=== PATIENT | female | born 1995 | race African-American/Black ===

== ENCOUNTER 2021-08-24 02:58 | Emergency (ER) | payer OTHER ==
[~2021-08-24] VITALS: Ht 165.1 cm; Wt 65.8 kg
--- NOTE | 2021-08-24 03:07 | NUR ---
pt in room 4a hit her nose on her car door one week ago.
[2021-08-24 03:55] LABS: HEMATOCRIT 37.5 % (31.2-41.9); MEAN CORPUSCULAR HEMOGLOBIN 30.3 uug (24.7-32.8); MEAN CORPUSCULAR VOLUME 89.4 fL (75.5-95.3); PLATELET COUNT (AUTO) 273 K/uL (179-408)
[2021-08-24 04:15] LABS: POTASSIUM 3.7 mmol/L (3.5-5.1)
[2021-08-24 04:40] VITALS: BP 130/70
--- NOTE | 2021-08-24 04:40 | NUR ---
Patient discharged to home in stable condition. Written and verbal after care instructions given. Patient verbalizes understanding of instructions. Stressed follow up or return to ER for worsening s/s.
== END 2021-08-24 04:40 | disposition home or self-care (01) ==
LOC: ER 03:13
DX: S00.33XA Contusion of nose, initial encounter (principal); W22.8XXA Striking against or struck by other objects, initial encounter; Y92.89 Other specified places as the place of occurrence of the external cause; R03.0 Elevated blood-pressure reading, without diagnosis of hypertension; F14.90 Cocaine use, unspecified, uncomplicated
CPT/HCPCS: 36415; 70160; 85025; A4663

== ENCOUNTER 2022-05-06 01:15 | Emergency (ER) | payer OTHER ==
[~2022-05-06] VITALS: Ht 165.1 cm; Wt 65.8 kg
--- NOTE | 2022-05-06 01:36 | NUR ---
DR Da Silva at bedside MSE in progress
[2022-05-06 02:00] LABS: HEMATOCRIT 39.9 % (31.2-41.9); MEAN CORPUSCULAR HEMOGLOBIN 29.5 uug (24.7-32.8); MEAN CORPUSCULAR VOLUME 90.2 fL (75.5-95.3); PLATELET COUNT (AUTO) 279 K/uL (179-408)
[2022-05-06 02:11] LABS: CREATININE 0.9 mg/dL (0.6-1.3); POTASSIUM 3.7 mmol/L (3.5-5.1)
[2022-05-06 02:17] LABS: BILIRUBIN,DIRECT 0.1 mg/dL (0.0-0.2); BILIRUBIN,TOTAL 0.3 mg/dL (0.2-1.0); TOTAL PROTEIN, SERUM 7.4 g/dL (6.4-8.2)
[2022-05-06] MEDS ORDERED: AMOX-430 PO (02:26)
[2022-05-06] MEDS ORDERED: FLUT16SP16 BNOSTRILS (02:26)
--- NOTE | 2022-05-06 03:01 | NUR ---
Patient discharged to home in stable condition. Written and verbal after care instructions given. Patient verbalizes understanding of instructions. Stressed follow up or return to ER for worsening s/s. Patient is a/ox4, NAD noted. patient ambulated with steady gait.
[2022-05-06 03:02] VITALS: BP 125/78
== END 2022-05-06 03:00 | disposition home or self-care (01) ==
LOC: ER 01:24
DX: J32.9 Chronic sinusitis, unspecified (principal); E83.42 Hypomagnesemia
CPT/HCPCS: 36415; 83735; 84443; 85025; A4663